=== PATIENT | female | born 1995 | race African-American/Black ===

== ENCOUNTER 2019-04-19 00:14 | Emergency (ER) | payer MEDICAID ==
[~2019-04-19] VITALS: Ht 160 cm; Wt 67.1 kg
[~2019-04-19 00:14] MED LIST: PREN-385 PO
[2019-04-19 00:40] VITALS: BP 148/76
--- NOTE | 2019-04-19 00:40 | NUR ---
TO LOBBY A/W BED AMBULATORY
--- NOTE | 2019-04-19 01:35 | NUR ---
PATIENT CALLED FIRST TIME. NO RESPONSE.
--- NOTE | 2019-04-19 02:00 | NUR ---
PATIENT CALLED SECOND TIME. NO RESPONSE.
--- NOTE | 2019-04-19 02:31 | NUR ---
PATIENT CALLED THIRD TIME. NO RESPONSE. LWBS
== END 2019-04-19 01:35 | disposition left against medical advice (07) ==
LOC: MED 00:14
DX: J02.9 Acute pharyngitis, unspecified (principal); Z53.21 Procedure and treatment not carried out due to patient leaving prior to being seen by health care provider

== ENCOUNTER 2020-10-30 16:43 | Emergency (ER) | payer MEDICAID ==
[~2020-10-30] VITALS: Ht 157.5 cm; Wt 59.0 kg
[2020-10-30 16:43] VITALS: BP 145/105
--- NOTE | 2020-10-30 17:00 | NUR ---
Pt biba for anxiety. Pt c/o her throat hurting, feeling dizzy, numbness/tingling/cramping in her hands and feet. Pt repeatedly states, "I don't feel right. I don't know if its anxiety or if im overwhelming myself" Pt admits to taking crystal meth last night and ETOH this morning. Pt states that she is having CP, nonradiating pain level 5/10. Pt placed on cardiac tele monitor. Pt HR 102. O2 saturation 100% on RA.
[2020-10-30] MEDS ORDERED: LORazepam 0.5 MG TAB PO ONE (17:15)
[2020-10-30] MEDS ORDERED: HYDR25CA1 PO (17:32)
[2020-10-30 19:20] VITALS: BP 135/98
--- NOTE | 2020-10-30 19:20 | NUR ---
Patient discharged with v/s stable. Written and verbal after care instructions given and explained. Patient alert, oriented and verbalized understanding of instructions. Wheel Chair Assisted with by caregiver. All questions addressed prior to discharge. ID band removed. Patient advised to follow up with PMD. Rx of Hydroxyzine Pamoate given. Patient educated on indication of medication including possible reaction and side effects. Opportunity to ask questions provided and answered.
== END 2020-10-30 19:20 | disposition home or self-care (01) ==
LOC: MED 16:43
DX: F41.9 Anxiety disorder, unspecified (principal)
CPT/HCPCS: 93005; 99283